=== PATIENT | male | born 1995 | race Two or more races ===

== ENCOUNTER 2018-04-21 13:48 | Emergency (ER) | payer OTHER ==
[~2018-04-21] VITALS: Ht 165.1 cm; Wt 78.0 kg
== END 2018-04-21 16:39 | disposition home or self-care (01) ==
LOC: ER 13:48
DX: S40.011A Contusion of right shoulder, initial encounter (principal); V19.9XXA Pedal cyclist (driver) (passenger) injured in unspecified traffic accident, initial encounter; Y93.89 Activity, other specified; Y92.488 Other paved roadways as the place of occurrence of the external cause; Y99.8 Other external cause status